=== PATIENT | female | born 1950 | race Caucasian/White ===

== ENCOUNTER 2021-12-15 19:44 | Inpatient (IN) | payer OTHER ==
[~2021-12-15] VITALS: Ht 170.2 cm; Wt 90.7 kg
[2021-12-15] MEDS ORDERED: ACETAMINOPHEN ES 500 MG TABLET ONE (20:17)
[2021-12-15] MEDS ORDERED: ONDANSETRON HCL/PF 4 MG/2 ML VIAL ONE (20:17)
[2021-12-15] MEDS ORDERED: ONDANSETRON HCL/PF 4 MG/2 ML VIAL IVP ONE (20:30)
[2021-12-15] MEDS ORDERED: IV NS 0.9% 1,000 ML BAG IV ONE (20:30)
[2021-12-15] MEDS ORDERED: ACETAMINOPHEN ES 500 MG TABLET PO ONE (20:30)
--- NOTE | 2021-12-15 20:32 | NUR ---
PT TRANSPORTED TO CT VIA [facility]
--- NOTE | 2021-12-15 20:51 | NUR ---
COVID SWAB DONE AND SENT TO LAB
--- NOTE | 2021-12-15 20:51 | NUR ---
RAPID INFLUENZA SWAB DONE AND SENT TO LAB
[2021-12-15 20:58] LABS: BASOPHILS % (AUTO) 0.4 % (0.0-2.0); EOSINOPHILS % (AUTO) 0.2 % (0.0-6.0); HEMATOCRIT 40 % (33-45); HEMOGLOBIN 13.2 g/dL (11.5-14.8); LYMPHOCYTES # (AUTO) 0.3 K/uL (0.8-4.8); MEAN CORPUSCULAR HGB CONC 33 g/dl (31.0-36.0); MEAN CORPUSCULAR VOLUME 91 fL (82-100); MONOCYTES # (AUTO) 0.1 K/uL (0.1-1.30); MONOCYTES % (AUTO) 1.8 % (2.0-12.0); NEUTROPHILS # (AUTO) 6.3 K/uL (1.8-8.9); NEUTROPHILS % (AUTO) 92.6 % (43.0-81.0); PLATELET COUNT (AUTO) 161 K/uL (150-450); RED BLOOD CELL COUNT(AUTO) 4.44 MIL/uL (4.0-5.2); WHITE BLOOD COUNT (AUTO) 6.9 K/uL (4.3-11.0)
--- NOTE | 2021-12-15 22:32 | NUR ---
LACTIC ACID 2.13
[2021-12-15 22:58] LABS: CALCIUM, SERUM 8.5 mg/dL (8.5-10.1); CARBON DIOXIDE 21 mmol/L (21-32); CHLORIDE 93 mmol/L (98-107); CREATININE 1.2 mg/dL (0.6-1.3); POTASSIUM 3.6 mmol/L (3.5-5.1); SODIUM SERUM 127 mmol/L (136-145); UREA NITROGEN, BLOOD 24 mg/dL (7-18)
[2021-12-15 23:02] LABS: GLUCOSE 458 mg/dL (74-106)
[2021-12-15] MEDS ORDERED: SULF1TAB48 PO (23:03)
[2021-12-15] MEDS ORDERED: LOPE-195 PO (23:03)
[2021-12-15] MEDS ORDERED: ONDA4TAB11 PO (23:03)
[2021-12-15 23:05] LABS: ALANINE AMINOTRANSFERASE 31 U/L (12-78); ALKALINE PHOSPHATASE 137 U/L (46-116); ASPARTATE AMINOTRANSFERASE 23 U/L (15-37); BILIRUBIN,DIRECT 0.2 mg/dL (0.0-0.2); BILIRUBIN,TOTAL 0.6 mg/dL (0.2-1.0); TOTAL PROTEIN, SERUM 8.5 g/dL (6.4-8.2)
[2021-12-15] MEDS ORDERED: INSULIN REGULAR, HUMAN 100 UNIT/ML 10 ML VIAL ONE (23:14)
[2021-12-15] MEDS ORDERED: ASPIRIN 325 MG TABLET ONE (23:14)
[2021-12-15 23:21] LABS: BILIRUBIN,URINE NEGATIVE (NEGATIVE); COLOR,URINE YELLOW (YELLOW); LEUKOCYTE ESTERASE ,URINE NEGATIVE (NEGATIVE); NITRITE, URINE NEGATIVE (NEGATIVE); PH,URINE 5.5 (5.0-8.0); PROTEIN,URINE 30 mg/dl (NEGATIVE); UGLUCOSE >=1000 mg/dL (NEGATIVE); UROBILINOGEN,URINE 0.2 EU/dL (0.2)
--- NOTE | 2021-12-15 23:29 | NUR ---
PROCALCITONIN 57.74
[2021-12-15] MEDS ORDERED: ASPIRIN 325 MG TABLET PO ONE (23:30)
[2021-12-15] MEDS ORDERED: INSULIN REGULAR, HUMAN 100 UNIT/ML 10 ML VIAL SQ ONE (23:30)
[2021-12-15 23:34] LABS: BACTERIA,URINE Many /HPF (None Seen); SQUAMOUS EPITHELIAL CELL,UR Few /HPF (None Seen); WBC,URINE 21-50 /HPF (0-3)
--- NOTE | 2021-12-16 03:03 | NUR ---
JOSIAH GARNICA, ADMIT HERE UNDER DR NOEL.
[2021-12-16] MEDS ORDERED: HYDROCODONE/APAP 5/325MG TABLET PO PRN (03:30)
[2021-12-16] MEDS ORDERED: ONDANSETRON HCL/PF 4 MG/2 ML VIAL IV PRN ×2 (03:30→07:30)
[2021-12-16] MEDS ORDERED: INSULIN GLARGINE, 100 UNIT/ML CARTRIDGE SQ ONE (03:30)
[2021-12-16] MEDS: BLOOD SUGAR DIAGNOSTIC 1 EACH STRIP IN SCH ×2 (03:30→07:36)
--- NOTE | 2021-12-16 04:20 | NUR ---
CALLED DR NOEL REGARDING CHANGE IN PATIENT MENTAL STATUS. ORDERS RECIEVED.
--- NOTE | 2021-12-16 04:27 | NUR ---
PT TRANSPORTED TO CT VIA [facility]
[2021-12-16] MEDS ORDERED: IV NS 0.9% 500 ML BAG IV ONE (04:30)
--- NOTE | 2021-12-16 04:39 | NUR ---
PT RETURNED TO ER BED7 FROM CT
--- NOTE | 2021-12-16 05:19 | NUR ---
LAB AT BEDSIDE FOR BLOOD DRAW
--- NOTE | 2021-12-16 05:50 | NUR ---
LACTIC ACID 2.8
[2021-12-16 05:53] LABS: CARBON DIOXIDE 20 mmol/L (21-32); CHLORIDE 100 mmol/L (98-107); CREATININE 1.3 mg/dL (0.6-1.3); GLUCOSE 339 mg/dL (74-106); POTASSIUM 3.2 mmol/L (3.5-5.1); SODIUM SERUM 134 mmol/L (136-145); UREA NITROGEN, BLOOD 23 mg/dL (7-18)
[2021-12-16 05:59] LABS: CHOLESTEROL 138 mg/dL (<200); HDL CHOLESTEROL 35 mg/dL (40-60); LDL 65 mg/dL (0-99); TRIGLYCERIDES 139 mg/dL (30-150)
[2021-12-16 06:11] LABS: BASOPHILS % (AUTO) 0.2 % (0.0-2.0); EOSINOPHILS % (AUTO) 0.3 % (0.0-6.0); HEMATOCRIT 39 % (33-45); HEMOGLOBIN 12.7 g/dL (11.5-14.8); LYMPHOCYTES # (AUTO) 0.3 K/uL (0.8-4.8); LYMPHOCYTES % (AUTO) 6.4 % (20.0-44.0); MEAN CORPUSCULAR HGB CONC 33 g/dl (31.0-36.0); MEAN CORPUSCULAR VOLUME 91 fL (82-100); MONOCYTES # (AUTO) 0.1 K/uL (0.1-1.30); MONOCYTES % (AUTO) 1.5 % (2.0-12.0); NEUTROPHILS # (AUTO) 3.9 K/uL (1.8-8.9); NEUTROPHILS % (AUTO) 91.6 % (43.0-81.0); PLATELET COUNT (AUTO) 125 K/uL (150-450); RED BLOOD CELL COUNT(AUTO) 4.25 MIL/uL (4.0-5.2); WHITE BLOOD COUNT (AUTO) 4.3 K/uL (4.3-11.0)
--- NOTE | 2021-12-16 07:35 | NUR ---
PT IN BED RESTING, AROUSABLE, UNDERSTANDS SOME DANISH. SIP OF WATER PROVIDED. NOT IN ACUTE DISTRESS.
--- NOTE | 2021-12-16 07:41 | NUR ---
ROOM 307-1
--- NOTE | 2021-12-16 07:49 | NUR ---
REPORT GIVEN TO NARISSA FOR KARO
[2021-12-16 08:00] VITALS: BP 117/55
--- NOTE | 2021-12-16 08:28 | NUR ---
LIFE SKILLS SPECIALIST NOTES RECEIVED PT FROM E.R. STAFF VIA MISSY, PT IS AROUSABLE, VERBALLY RESPONSIVE, NO COMPLAINT OF PAIN, NOT IN DISTRESS, STATES THAT SHE IS TIRED, ROOM SET ORIENTATION PROVIDED, VERBALIZED UNDERSTANDING, CALL LIGHT WITHIN REACH, KEPT COMFORTABLE.
--- NOTE | 2021-12-16 08:29 | NUR ---
PT TRANSFERRED TO ROOM 307 VIA ACLS PROTOCOL. WARM HANDOFF GIVEN TO NAGA CARY.
[2021-12-16 08:30] VITALS: BP 117/55
[2021-12-16] MEDS ORDERED: POTASSIUM CHLORIDE 20 MEQ TAB.PRT.SR PO ONE (08:30)
[2021-12-16] MEDS ORDERED: INSULIN GLARGINE, 100 UNIT/ML CARTRIDGE SQ SCH (09:00)
[2021-12-16 09:07] LABS: BAND % (MANUAL) 20 % (0.0-5.0); LYMPHOCYTES % (MANUAL) 8 % (16-48); METAMYELOCYTES % 3 % (0-0); MONOCYTES % (MANUAL) 5 % (0-11.0); MYELOCYTES % 2 % (0-0); NEUTROPHILS % (MANUAL) 62 (42-76)
[2021-12-16] MEDS: IV NS 0.9% 1,000 ML IV PRN (09:33)
[2021-12-16] MEDS: LEVOFLOXACIN 500 MG /D5W 100ML 500 MG in PREMIX 1 EA IV SCH (09:33)
[2021-12-16] MEDS ORDERED: PIOG45TA5 PO (09:43)
[2021-12-16] MEDS ORDERED: AMLO-213 PO (09:43)
[2021-12-16] MEDS ORDERED: GABA-532 PO (09:43)
[2021-12-16] MEDS ORDERED: ATOR40TA PO (09:43)
[2021-12-16] MEDS ORDERED: CAND32TA9 PO (09:43)
[2021-12-16] MEDS: ACETAMINOPHEN 325 MG TABLET PO PRN ×2 (09:48→19:17)
[2021-12-16] MEDS ORDERED: ATORVASTATIN 40 MG TABLET PO SCH (10:30)
[2021-12-16] MEDS: CARVEDILOL 6.25 MG TABLET PO SCH ×2 (10:30→21:15)
[2021-12-16 11:08] LABS: THYROID STIMULATING HORMONE 0.572 uIU/mL (0.358-3.74)
[2021-12-16 12:00] VITALS: BP 106/55
[2021-12-16] MEDS ORDERED: DEXTROSE 50%-WATER 50 ML DISP.SYRIN IV PRN (12:00)
[2021-12-16] MEDS: ASPIRIN 81 MG TAB.CHEW PO SCH (12:10)
[2021-12-16] MEDS: ATORVASTATIN 10 MG TABLET PO SCH (12:11)
[2021-12-16] MEDS: INSULIN REGULAR, HUMAN 100 UNIT/ML 3 ML VIAL SQ PRN ×2 (12:12→17:22)
[2021-12-16] MEDS: ENOXAPARIN SODIUM 100 MG/ML DISP.SYRIN SQ SCH ×2 (12:12→21:18)
[2021-12-16] MEDS: BLOOD SUGAR DIAGNOSTIC 1 EACH STRIP VI SCH ×3 (12:13→21:24)
[2021-12-16] MEDS: INSULIN GLARGINE, 100 UNIT/ML CARTRIDGE SQ SCH ×2 (12:13→21:24)
[2021-12-16] MEDS: METRONIDAZOLE 500MG/ NS 100ML 500 MG in PREMIX 1 EA IV SCH ×2 (12:46→21:09)
[2021-12-16 16:00] VITALS: BP 99/54
--- NOTE | 2021-12-16 18:17 | NUR ---
TONGUE PRESSER NOTES PT IN BED, ASLEEP, EASY TO AROUSE AND ABLE TO MAKE NEEDS KNOWN, CALL LIGHT WITHIN REACH, IV FLUIDS INFUSING WELL, ASSISTED TO BATHROOM NEEDED, TOLERATES CURRENT DIET, BS CHECKED, INSULIN GIVEN PER SLIDING SCALE ORDERED, ALL NEEDS ATTENDED.
--- NOTE | 2021-12-16 19:30 | NUR ---
CUFF KNITTER OPENING NOTE RECEIVED PATIENT IN BED, DELIRIOUS AT THIS TIME WITH 103 FEVER-- AM SHIFT JUST GAVE TYLENOL. O2 TITRATED TO 6LPM. NO C/O PAIN. IV NS RUNNING @100 MLS/HR. TELE MONITOR READING ST WITH 112. RE-ORIENTED AND ENCOURAGED WITH THE USE OF CALL LIGHT. SAFETY IN PLACE. WILL CONTINUE WITH PLAN OF CARE FOR PATIENT.
[2021-12-16 20:00] VITALS: BP 152/85
[2021-12-16] MEDS: *INSULIN REGULAR(HUMULIN R)HUM 100 UNIT/ML VIAL SQ PRN (21:26)
--- NOTE | 2021-12-16 22:00 | NUR ---
CALL CENTER RECRUITER NOTE TEMPERATURE WENT DOWN TO 98.7, HR SR WITH 70BPM. PATIENT STABLE IN 6LP OF O2 VIA NC SATURATING 98%. STABLE FOR NOW. WILL CONTINUE TO MONITOR.
[2021-12-17] VITALS: BP 95/57
[2021-12-17] MEDS: IV NS 0.9% 1,000 ML IV PRN (02:49)
--- NOTE | 2021-12-17 03:48 | NUR ---
FARM EQUIPMENT ASSEMBLER NOTE PATIENT STABLE IN 2LPM OF O2 VIA NC RIGHT NOW. SATURATING 98%. NO FEVER.
[2021-12-17 04:00] VITALS: BP 130/60
[2021-12-17] MEDS: METRONIDAZOLE 500MG/ NS 100ML 500 MG in PREMIX 1 EA IV SCH ×2 (05:06→13:57)
[2021-12-17 05:16] LABS: BASOPHILS % (AUTO) 0.2 % (0.0-2.0); EOSINOPHILS % (AUTO) 0.3 % (0.0-6.0); HEMATOCRIT 33 % (33-45); LYMPHOCYTES % (AUTO) 8.8 % (20.0-44.0); MEAN CORPUSCULAR HGB CONC 33 g/dl (31.0-36.0); MEAN CORPUSCULAR VOLUME 91 fL (82-100); MONOCYTES # (AUTO) 0.5 K/uL (0.1-1.30); MONOCYTES % (AUTO) 4.6 % (2.0-12.0); NEUTROPHILS % (AUTO) 86.1 % (43.0-81.0); PLATELET COUNT (AUTO) 107 K/uL (150-450); RED BLOOD CELL COUNT(AUTO) 3.69 MIL/uL (4.0-5.2); WHITE BLOOD COUNT (AUTO) 11.6 K/uL (4.3-11.0)
[2021-12-17 05:20] LABS: CALCIUM, SERUM 7.7 mg/dL (8.5-10.1); CARBON DIOXIDE 22 mmol/L (21-32); CHLORIDE 102 mmol/L (98-107); CREATININE 1.1 mg/dL (0.6-1.3); GLUCOSE 219 mg/dL (74-106); POTASSIUM 4.3 mmol/L (3.5-5.1); SODIUM SERUM 133 mmol/L (136-145); UREA NITROGEN, BLOOD 28 mg/dL (7-18)
[2021-12-17 05:24] LABS: ALANINE AMINOTRANSFERASE 27 U/L (12-78); ALKALINE PHOSPHATASE 141 U/L (46-116); ASPARTATE AMINOTRANSFERASE 33 U/L (15-37); BILIRUBIN,TOTAL 0.3 mg/dL (0.2-1.0); MAGNESIUM 2.7 mg/dL (1.8-2.4); PHOSPHORUS 2.4 mg/dL (2.5-4.9); TOTAL PROTEIN, SERUM 6.3 g/dL (6.4-8.2)
[2021-12-17] MEDS: BLOOD SUGAR DIAGNOSTIC 1 EACH STRIP VI SCH ×4 (06:33→21:45)
[2021-12-17] MEDS: INSULIN REGULAR, HUMAN 100 UNIT/ML 3 ML VIAL SQ PRN ×3 (06:34→17:30)
--- NOTE | 2021-12-17 07:30 | NUR ---
CONSULTING GROUP ANALYST NOTES PT IN BED, ASLEEP, EASY TO AROUSE, ALERT AND ABLE TO MAKE NEEDS KNOWN, NOT IN DISTRESS, ON O2 AT 2LPM VIA N/C NO SOB AT THIS TIME, AFEBRILE, CALL LIGHT WITHIN REACH, BED ALARM ON.
--- NOTE | 2021-12-17 07:31 | NUR ---
CHIEF OPERATING ENGINEER CLOSING NOTE NEEDS ATTENDED. REPORT GIVEN TO NAGA LEWIS FOR CONTINUITY OF CARE.
[2021-12-17 08:00] VITALS: BP 144/73
--- NOTE | 2021-12-17 08:02 | NUR ---
WOUND CARE CONSULT: PT HAVING BREAKFAST AT THIS TIME. REVIEWED CHART, NURSING DOCUMENTATION AND PHOTOS WHICH INDICATE RED RASH TO LEFT AXILLA AND GROIN FOLDS, PRESENT ON ADMISSION. RECOMMENDATIONS MADE FOR SKIN PROTECTION. DISCUSSED WITH NURSING STAFF. MD IN AGREEMENT WITH PLAN OF CARE.
[2021-12-17] MEDS ORDERED: Z GUARD REMEDY 4 OZ OINT TP PRN (08:30)
[2021-12-17] MEDS: LEVOFLOXACIN 500 MG /D5W 100ML 500 MG in PREMIX 1 EA IV SCH (09:07)
[2021-12-17] MEDS: ENOXAPARIN SODIUM 100 MG/ML DISP.SYRIN SQ SCH ×2 (09:08→21:00)
[2021-12-17] MEDS: ATORVASTATIN 10 MG TABLET PO SCH (09:08)
[2021-12-17] MEDS: ASPIRIN 81 MG TAB.CHEW PO SCH (09:08)
[2021-12-17] MEDS: CARVEDILOL 12.5 MG TABLET PO SCH ×2 (09:09→20:47)
[2021-12-17] MEDS: CLOTRIMAZOLE 1% 15 GM TUBE TP SCH ×2 (09:10→17:28)
[2021-12-17] MEDS: INSULIN GLARGINE, 100 UNIT/ML CARTRIDGE SQ SCH ×2 (09:11→21:45)
[2021-12-17] MEDS ORDERED: FLUCONAZOLE (100 MG) 100 MG TABLET PO ONE (09:30)
[2021-12-17] MEDS ORDERED: IOHEXOL-350 100 ML VIAL IV ONE ×2 (09:37→10:19)
[2021-12-17] MEDS ORDERED: IV NS 0.9% 250 ML IV ONE (09:37)
[2021-12-17] MEDS ORDERED: CT SWABBABLE VALVE TRANS SET 1 EA INFUS.SET MC ONE (09:37)
[2021-12-17] MEDS ORDERED: NITROGLYCERIN 0.4 MG/TAB BOTTLE ONE (09:37)
[2021-12-17] MEDS: METOPROLOL TARTRATE INJ 5 MG/5 ML AMPUL IVP PRN ×6 (09:45→10:10)
[2021-12-17] MEDS ORDERED: METOPROLOL TARTRATE INJ 5 MG/5 ML AMPUL ONE ×2 (09:48→10:04)
[2021-12-17] MEDS ORDERED: IV NS 0.9% 500 ML IV PRN (10:00)
[2021-12-17] MEDS ORDERED: NITROGLYCERIN 0.4 MG/TAB BOTTLE SL ONE (10:00)
--- NOTE | 2021-12-17 11:00 | NUR ---
WOOL SHEARING SUPERVISOR NOTES PT BACK FROM [facility], TOLERATED PROCEDURE WELL, AT BEDSIDE, PT SEEN BY DR. NOEL TODAY, ORDERS GIVEN.
[2021-12-17 12:00] VITALS: BP_SYST 117; BP_SYST 135; BP_DIAS 52; BP_DIAS 58
--- NOTE | 2021-12-17 14:06 | NUR ---
AIR BOX TESTER NOTES SPOKE WITH PT'S DAUGHTER JESSICA, DR. NOEL SPOKE WITH HER AND UPDATED HER ON PT'S CURRENT STATUS WELL THE RESULTS OF TODAY'S PROCEDURES, DAUGHTER IS AWARE OF THE PLAN FOR LEFT HEART CATH AND CT GUIDED BIOPSY OF LEFT LUNG MASS, VERBALIZED UNDERSTANDING, SAID SHE WILL CALL HER MOM AND EXPLAIN TO HER.
[2021-12-17] MEDS ORDERED: K PHOS NEUTRAL 250 MG TABLET PO ONE (16:00)
[2021-12-17 16:16] VITALS: BP 135/58
--- NOTE | 2021-12-17 18:05 | NUR ---
BILLING ADMINISTRATOR NOTE PT IN BED, ALERT AN ORIENTED. HAS BEEN USING BEDSIDE COMMODE WITH ASSISTANCE. AT BEDSIDE, BROUGHT MEDICATIONS FROM HOME, PREPARED TO DELIVER TO HOSPITAL PHARMACY. PT ABLE TO EXPRESS CONCERNS AND NEEDS, CALL LIGHT WITHIN REACH, BED AT LOWEST POSITION, O2 AND IV RUNNING ORDERED.ALL MEDICATIONS HAVE BEEN ADMINISTERED ORDERED. HEART CONSENT AND CT BIOPSY ORDER HAVE BEEN SIGNED, IN PT'S CHART.
[2021-12-17 20:09] VITALS: BP 151/97
[2021-12-17] MEDS: ACETAMINOPHEN 325 MG TABLET PO PRN (20:54)
[2021-12-17] MEDS: *INSULIN REGULAR(HUMULIN R)HUM 100 UNIT/ML VIAL SQ PRN (21:43)
--- NOTE | 2021-12-17 22:47 | NUR ---
FEVER 2057 Patient spiked Temp 102.9F Cooling measure given, patient on IV Flagyl and Levaquin. Prelim 12/15/21 Bld. cx Gram neg rods. Urine cx Gram neg rods. Notified Dr. Alvarado with new orders placed. Tylenol for fever, stop Flagyl and Levaquin. Start on IV Zosyn 3.375gm IV q6H. Hold Lovenox injection dose tonight, for CT Guided Left lung biopsy tomorrow.
--- NOTE | 2021-12-17 22:55 | NUR ---
ACCU CHECK ACHS 2143 Bld Glucose 156mg/dl. Given 2units insulin Regular per SS parameters co-signed by NAGA Musa.
[2021-12-17] MEDS ORDERED: PIPERACILLIN /TAZOBACTAM 3.375 G VIAL IV ONE (23:24)
[2021-12-17] MEDS: PIPERACILLIN /TAZOBACTAM 3.375 G in IV D5W 50 ML IV SCH (23:53)
[2021-12-18] VITALS (10 sets, daily range): BP systolic 129–149; BP diastolic 66–77
--- NOTE | 2021-12-18 00:30 | NUR ---
FEVER RESOLVED Temp curved down 98.F Patient denies pain, no c/o chest pain.
[2021-12-18] MEDS: IV NS 0.9% 1,000 ML IV PRN ×2 (03:07→17:02)
[2021-12-18] MEDS ORDERED: PIPERACILLIN /TAZOBACTAM 3.375 G VIAL IV ONE (05:16)
[2021-12-18] MEDS: PIPERACILLIN /TAZOBACTAM 3.375 G in IV D5W 50 ML IV SCH (05:32)
--- NOTE | 2021-12-18 05:56 | NUR ---
END OF SHIFT REPORT Patient is A/O x3. On supplemental Oxygen 2L NC, observed SOB with exertion. Denies chest pain, Sinus rhythm in the Tele monitor, HR 74. IVF infusing, on IV abx. Fever resolved after Tylenol and cooling measure. NPO since MN. Plan for CT Needle Biopsy and Left Heart cath. Will endorse to oncoming RN.
[2021-12-18] MEDS: BLOOD SUGAR DIAGNOSTIC 1 EACH STRIP VI SCH ×4 (06:19→21:07)
[2021-12-18] MEDS: INSULIN REGULAR, HUMAN 100 UNIT/ML 3 ML VIAL SQ PRN ×3 (06:22→21:08)
--- NOTE | 2021-12-18 06:22 | NUR ---
ACCU CHECK ACHS Bld Glucose 137mg/dl. Given 2units insulin Regular per SS parameters co-signed by NAGA Mark .
[2021-12-18 06:47] LABS: HEMATOCRIT 36 % (33-45); HEMOGLOBIN 11.9 g/dL (11.5-14.8); MEAN CORPUSCULAR HGB CONC 33 g/dl (31.0-36.0); MEAN CORPUSCULAR VOLUME 92 fL (82-100); PLATELET COUNT (AUTO) 98 K/uL (150-450); RED BLOOD CELL COUNT(AUTO) 3.97 MIL/uL (4.0-5.2); WHITE BLOOD COUNT (AUTO) 10.9 K/uL (4.3-11.0)
--- NOTE | 2021-12-18 07:30 | NUR ---
PAPER BAG MACHINE OPERATOR OPENING NOTES: RECEIVED PATIENT IN BED ASLEEP, EASY TO AROUSED WITH STIMULI, A/O X3 AND ABLE TO VERBALIZED NEEDS. NO SOB CARDIAC DISTRESS NOTED, ON O2 INHALATION @ 2LPM VIA NC. BINDING DYER W/ CURRENT READING OF SINUS RHYTHM 71BPM. IV ACCESS ON RAC G 18 NS AT 75ML/HR PATENT AND INTACT AND INFUSING WELL. SAFETY PRECAUTIONS MAINTAINED: BED IN LOWEST AND LOCKED POSITION, SIDE RAILS UP . CALL LIGHT IN EASY REACH FOR HELP/ASSISTANCE. WILL MONITOR THE PATIENT ACCORDINGLY.
[2021-12-18 07:43] LABS: CREATININE 0.8 mg/dL (0.6-1.3); POTASSIUM 3.9 mmol/L (3.5-5.1)
[2021-12-18] MEDS ORDERED: CEFTRIAXONE 2 G in IV D5W 100 ML IV SCH (08:00)
--- NOTE | 2021-12-18 08:00 | NUR ---
RN NOTES: LEFT HEART CATHETER RESCHEDULED PER MD DUE TO EPISODES OF FEVER YESTERDAY.
[2021-12-18] MEDS: ASPIRIN 81 MG TAB.CHEW PO SCH (09:00)
[2021-12-18] MEDS: INSULIN GLARGINE, 100 UNIT/ML CARTRIDGE SQ SCH ×2 (09:00→21:06)
[2021-12-18] MEDS: CARVEDILOL 12.5 MG TABLET PO SCH ×2 (09:00→20:50)
[2021-12-18] MEDS: ATORVASTATIN 10 MG TABLET PO SCH (09:00)
[2021-12-18] MEDS: ENOXAPARIN SODIUM 100 MG/ML DISP.SYRIN SQ SCH ×2 (09:00→20:51)
--- NOTE | 2021-12-18 09:00 | NUR ---
RN NOTES: DID NOT GIVE GLARGINE 22 UNITS BS IS 192MG/DL, PATIENT ON NPO.
[2021-12-18] MEDS: CLOTRIMAZOLE 1% 15 GM TUBE TP SCH ×2 (09:37→17:28)
--- NOTE | 2021-12-18 11:53 | NUR ---
RN NOTES: I CALLED RADIOLOGY DEPT, PER TED DELGADO MD WILL RESCHEDULED IT OUT PATIENT. PATIENT CAN RESUME HER DIET.
[2021-12-18] MEDS ORDERED: PIPERACILLIN /TAZOBACTAM 3.375 G in IV D5W 50 ML IV SCH (12:00)
--- NOTE | 2021-12-18 13:45 | NUR ---
RN NOTES: PER DR NOEL RESUME [facility] DIET. ORDERS NOTED AND CARRIED OUT.
--- NOTE | 2021-12-18 14:34 | NUR ---
RN NOTES: OFFERED SNACKS AND CRANBERRY JUICE PATIENT ABLE TO TOLERATE FOOD INTAKE, NO NAUSEA OR VOMITING NOTED.
[2021-12-18 16:28] LABS: BAND % (MANUAL) 2 % (0.0-5.0); EOSINOPHILS % (MANUAL) 2 % (0-4); LYMPHOCYTES % (MANUAL) 12 % (16-48); MONOCYTES % (MANUAL) 4 % (0-11.0)
[2021-12-18 16:29] LABS: NEUTROPHILS % (MANUAL) 80 (42-76)
[2021-12-18] MEDS ORDERED: MEROPENEM 1 G in IV NS 0.9% 100 ML IV ONE (17:00)
--- NOTE | 2021-12-18 18:12 | NUR ---
RN NOTES: INFORMED DR NOEL THAT FAMILY'S REQUESTING TO MAKE UPDATE ON HER MOTHER'S CONDITION: JESSICA [phone].
--- NOTE | 2021-12-18 18:33 | NUR ---
BUSINESS PERFORMANCE SPECIALIST CLOSING NOTES: PATIENT IN BED AWAKE, A/O X3 AND ABLE TO VERBALIZED NEEDS. NO SOB CARDIAC DISTRESS NOTED, ON O2 INHALATION @ 2LPM VIA NC. RADIO REPAIRMAN W/ CURRENT READING OF SINUS RHYTHM 75BPM. IV ACCESS ON RAC G 18 NS AT 75ML/HR PATENT AND INTACT AND INFUSING WELL. NO NAUSEA OR VOMITING NOTED. HAD 3X OF BM- SOFT TO LOOSE YELLOWISH BROWNISH COLOORED. PATIENT STILL WARM TO TOUCH NO FEVER. SAFETY PRECAUTIONS MAINTAINED: BED IN LOWEST AND LOCKED POSITION, SIDE RAILS UP . CALL LIGHT IN EASY REACH FOR HELP/ASSISTANCE. WILL MONITOR THE PATIENT ACCORDINGLY. ENDORSED TO EXECUTIVE DIRECTOR NURSE FOR CONTINUITY OF CARE.
--- NOTE | 2021-12-18 19:30 | NUR ---
STAPLE SHEAR OPERATOR NOTES RECEIVED ON BED SLEEPING,AROUSABLE TO VERBAL STIMULI,BREATHING EASY,NO SOB,IVF NS AT 75ML/HR RATE INFUSING WELL ON RAC SALINE LOCK,SITE PATENT,NO S/S OF INFILTRATION NOTED.ISOLATION PRECAUTION FOR ESBL,ECOLI ON STOOL.CURRENTLY ON IV ABX.WILL CONTINUE TO MONITOR STATUS,CALL LIGHT IN REACH,NEEDS ANTICIPATED.
--- NOTE | 2021-12-18 20:03 | NUR ---
CAMPUS SAFETY OFFICER NOTES SR-73 ON TELE MONITOR
--- NOTE | 2021-12-18 21:07 | NUR ---
CHIPPER FEEDER NOTES ACCU-CHECK BLOOD SUGAR CHECK 170,COVERED WITH HUMULIN R 3 UNITS,ALONG WITH LANTUS 22 UNITS SCHEDULED,GIVEN SQ ON RIGHT DELTOID.IVF INFUSING WELL ON RIGHT AC SALINE LOCK VIA IV PUMP.
[2021-12-19] VITALS: BP 158/77
[2021-12-19] MEDS: MEROPENEM 1 G in IV NS 0.9% 100 ML IV SCH ×3 (00:34→16:21)
--- NOTE | 2021-12-19 02:25 | NUR ---
REPRODUCTION TECHNICIAN NOTES REPORTED BY LAB,SECOND BOTTLE OF BLOOD CULTURE SHOWS GRAM NEGATIVE RODS,ALREADY ON ANTIBIOTICS
[2021-12-19 04:00] VITALS: BP 137/83
--- NOTE | 2021-12-19 04:00 | NUR ---
RN TRAUMA NOTES MORNING CARE RENDERED TOLERATED WELL.
[2021-12-19 04:04] VITALS: BP 137/83
--- NOTE | 2021-12-19 05:30 | NUR ---
MANAGEMENT TECHNICIAN NOTES ACCU-CHECK BLOOD SUGAR CHECK 139,COVERED WITH HUMULIN R 2 UNITS PER SLIDING SCALE.,IVF INFUSING WELL ON RIGHT WRIST.
[2021-12-19] MEDS: BLOOD SUGAR DIAGNOSTIC 1 EACH STRIP VI SCH ×3 (05:59→16:53)
[2021-12-19] MEDS: INSULIN REGULAR, HUMAN 100 UNIT/ML 3 ML VIAL SQ PRN ×3 (06:19→16:56)
[2021-12-19 06:20] LABS: BASOPHILS % (AUTO) 0.1 % (0.0-2.0); EOSINOPHILS % (AUTO) 0.2 % (0.0-6.0); HEMATOCRIT 35 % (33-45); HEMOGLOBIN 11.8 g/dL (11.5-14.8); LYMPHOCYTES # (AUTO) 0.9 K/uL (0.8-4.8); LYMPHOCYTES % (AUTO) 9.4 % (20.0-44.0); MEAN CORPUSCULAR HGB CONC 33 g/dl (31.0-36.0); MEAN CORPUSCULAR VOLUME 90 fL (82-100); MONOCYTES # (AUTO) 0.7 K/uL (0.1-1.30); MONOCYTES % (AUTO) 7.9 % (2.0-12.0); NEUTROPHILS # (AUTO) 7.6 K/uL (1.8-8.9); NEUTROPHILS % (AUTO) 82.4 % (43.0-81.0); PLATELET COUNT (AUTO) 105 K/uL (150-450); RED BLOOD CELL COUNT(AUTO) 3.93 MIL/uL (4.0-5.2); WHITE BLOOD COUNT (AUTO) 9.2 K/uL (4.3-11.0)
--- NOTE | 2021-12-19 06:52 | NUR ---
MILLER HELPER DISTILLERY NOTES SLEEPING AROUSABLE TO VERBAL STIMULI,IVF INFUSING WELL ON RIGHT WRIST.IN NO ACUTE DISTRESS.
[2021-12-19 06:55] LABS: CREATININE 0.7 mg/dL (0.6-1.3); POTASSIUM 3.4 mmol/L (3.5-5.1)
--- NOTE | 2021-12-19 07:30 | NUR ---
RUG CUTTER OPENING NOTES: RECEIVED PATIENT IN BED ASLEEP, EASY TO AROUSED WITH STIMULI, A/O X3 AND ABLE TO VERBALIZED NEEDS. NO SOB CARDIAC DISTRESS NOTED, ON O2 INHALATION @ 2LPM VIA NC. MEDICAL PHYSICS TEACHER W/ CURRENT READING OF SINUS RHYTHM 61 BPM. IV ACCESS ON RAC G 18 NS AT 75ML/HR PATENT AND INTACT AND INFUSING WELL. SAFETY PRECAUTIONS MAINTAINED: BED IN LOWEST AND LOCKED POSITION, SIDE RAILS UP . CALL LIGHT IN EASY REACH FOR HELP/ASSISTANCE. WILL MONITOR THE PATIENT ACCORDINGLY.
[2021-12-19] MEDS ORDERED: MERO1VIA23 IV (07:55)
[2021-12-19] MEDS ORDERED: *INS REG SQ (07:55)
[2021-12-19] MEDS ORDERED: Insulin Glargine,Hum SQ (07:55)
[2021-12-19] MEDS ORDERED: CARV12.52 PO (07:55)
[2021-12-19] MEDS ORDERED: ASPI-1169 PO (07:55)
[2021-12-19] MEDS ORDERED: ENOXAPARIN SODIUM 40 MG/0.4 ML DISP.SYRIN SQ SCH (08:00)
[2021-12-19 08:16] VITALS: BP 148/73
[2021-12-19] MEDS: ATORVASTATIN 10 MG TABLET PO SCH (08:29)
[2021-12-19] MEDS: CARVEDILOL 12.5 MG TABLET PO SCH (08:30)
[2021-12-19] MEDS: ASPIRIN 81 MG TAB.CHEW PO SCH (08:30)
[2021-12-19] MEDS: CLOTRIMAZOLE 1% 15 GM TUBE TP SCH ×2 (08:35→16:24)
[2021-12-19] MEDS: INSULIN GLARGINE, 100 UNIT/ML CARTRIDGE SQ SCH (08:45)
[2021-12-19] MEDS ORDERED: VALSARTAN 80 MG TABLET PO SCH (09:00)
[2021-12-19] MEDS ORDERED: POTASSIUM CHLORIDE 20 MEQ TAB.PRT.SR PO SCH (10:00)
--- NOTE | 2021-12-19 11:47 | NUR ---
RN NOTES: MIDLINE INSERTED ON MOIZ G#18, PATIENT TOLERATED WELL
[2021-12-19 16:48] VITALS: BP 147/75
--- NOTE | 2021-12-19 18:47 | NUR ---
SUPERVISOR LINE DEPARTMENT NOTES: PATIENT IN BED, DC TO SNF, GAVE REPORT TO RN NATHALIA. PATIENT ALERT AND ORIENTED X 3 [place]ISH SPEAKING, PATIENT VERY PLEASANT. NO SOB OR CARDIAC DISTRESS NOTED, AFEBRILE ON O2 INHALATION @2LPM TOLERATING WELL. SKIN ISSUES TAKEN AND FILED IN HER CHART. ALL BELONGINGS TAKEN AND CARRIED BY THE . ENDORSED TO SNF RN AND PARAMEDICS THAT PT ON CONTACT ISOLATION DUE TO ESBL, K.PNEUMONIAE AND E.COLI. KEPT THE IV ACCESS RIGHT FOREARM AND MOIZ MIDLINE G#18 FOR IV CONTINUATION OF ANTIBIOTICS THERAPY. KEPT IDENTIFICATION BAND IN PLACE. PATIENT KEPT CLEANED AND RESTED. PATIENT LEFT THE UNIT, ACCOMPANIED BY 2 PARAMEDICS VIA REGULAR GURNEY, LEFT THE UNIT
== END 2021-12-19 18:49 | DRG 871 ==
LOC: ER 19:46 → TRANSITION 12-16 04:59 → TELE 12-16 07:50
PROVIDERS: ADMIT Internal Medicine; ATTEND Internal Medicine
PROC: 05HF33Z Insertion of Infusion Device into Left Cephalic Vein, Percutaneous Approach (ICD-10-PCS; principal; 2021-12-19)
DX: A41.51 Sepsis due to Escherichia coli [E. coli] (principal); G92.8 Other toxic encephalopathy; I21.4 Non-ST elevation (NSTEMI) myocardial infarction; E87.1 Hypo-osmolality and hyponatremia; N39.0 Urinary tract infection, site not specified; E87.2 Acidosis; Z16.12 Extended spectrum beta lactamase (ESBL) resistance; K52.9 Noninfective gastroenteritis and colitis, unspecified; D69.6 Thrombocytopenia, unspecified; E86.0 Dehydration; Z20.822 Contact with and (suspected) exposure to COVID-19; E11.65 Type 2 diabetes mellitus with hyperglycemia; I10 Essential (primary) hypertension; E87.6 Hypokalemia; R79.89 Other specified abnormal findings of blood chemistry; R09.02 Hypoxemia; E66.9 Obesity, unspecified; Z68.31 Body mass index [BMI] 31.0-31.9, adult; R91.8 Other nonspecific abnormal finding of lung field; B96.20 Unspecified Escherichia coli [E. coli] as the cause of diseases classified elsewhere; I25.10 Atherosclerotic heart disease of native coronary artery without angina pectoris; K80.20 Calculus of gallbladder without cholecystitis without obstruction
CPT/HCPCS: 36415; 70450-TC; 71045-TC; 75574; 80048-TC; 80053-TC; 80061-TC; 80076-TC; 81001; 82962-TC; 83605-TC; 83735-TC; 84100-TC; 84439-TC; 84443-TC; 84484-TC; 85025-TC; 85610-TC; 85730-TC; 87040-TC; 87081-TC; 87086-TC; 87186-TC; 93307-TC; 94799-TC; A4216; C9803; G0378; J0696; J1650; J1815; J1956; J2185; J2405; J2543; J3490; J7030; J7040; J7050; J7060; Q9967

== ENCOUNTER 2024-04-19 01:38 | Emergency (ER) | payer OTHER, MEDICAID ==
[~2024-04-19] VITALS: Ht 167.6 cm; Wt 68.0 kg
[~2024-04-19 01:38] MED LIST: *INS REG SQ; ASPI-1169 PO; ATOR40TA PO; CARV12.52 PO; Insulin Glargine,Hum SQ; MERO1VIA23 IV
[2024-04-19 02:37] LABS: BASOPHILS % (AUTO) 0.3 % (0.0-2.0); EOSINOPHILS # (AUTO) 0.2 K/uL (0.0-0.7); EOSINOPHILS % (AUTO) 2.2 % (0.0-6.0); HEMATOCRIT 43 % (33-45); HEMOGLOBIN 14.2 g/dL (11.5-14.8); LYMPHOCYTES # (AUTO) 3.2 K/uL (0.8-4.8); LYMPHOCYTES % (AUTO) 35.6 % (20.0-44.0); MEAN CORPUSCULAR HEMOGLOBIN 30 PG (26.0-33.0); MEAN CORPUSCULAR HGB CONC 33 g/dl (31.0-36.0); MEAN CORPUSCULAR VOLUME 91 fL (82-100); MONOCYTES # (AUTO) 0.5 K/uL (0.1-1.30); MONOCYTES % (AUTO) 5.9 % (2.0-12.0); NEUTROPHILS # (AUTO) 5.1 K/uL (1.8-8.9); PLATELET COUNT (AUTO) 258 K/uL (150-450); RED BLOOD CELL COUNT(AUTO) 4.78 MIL/uL (4.0-5.2); RED CELL DISTRIBUTION WIDTH 13.8 % (11.5-15.0)
[2024-04-19] MEDS ORDERED: MECLIZINE HCL 25 MG TABLET ONE (02:44)
[2024-04-19] MEDS ORDERED: METOCLOPRAMIDE HCL 10 MG/2 ML VIAL ONE (02:44)
[2024-04-19] MEDS ORDERED: diphenhydrAMINE HCL 50 MG/ML VIAL ONE (02:44)
[2024-04-19 02:51] LABS: MAGNESIUM 2.4 mg/dL (1.8-2.4)
[2024-04-19 02:56] LABS: INR 0.95 (0.91-1.10); PARTIAL THROMBOPLASTIN TIME 26.4 SEC (24.3-34.3); PROTHROMBIN TIME 10.1 SECS (9.2-11.1)
[2024-04-19 02:58] LABS: ALANINE AMINOTRANSFERASE 34 U/L (12-78); ALBUMIN 3.1 g/dL (3.4-5.0); ALKALINE PHOSPHATASE 69 U/L (46-116); ASPARTATE AMINOTRANSFERASE 24 U/L (15-37); BILIRUBIN,DIRECT 0.1 mg/dL (0.0-0.2); BILIRUBIN,TOTAL 0.3 mg/dL (0.2-1.0); CALCIUM, SERUM 8.8 mg/dL (8.5-10.1); CARBON DIOXIDE 28 mmol/L (21-32); CHLORIDE 105 mmol/L (98-107); CREATININE 0.9 mg/dL (0.6-1.3); GLUCOSE 57 mg/dL (74-106); LIPASE 61 U/L (16-77); POTASSIUM 3.9 mmol/L (3.5-5.1); SODIUM SERUM 142 mmol/L (136-145); TOTAL PROTEIN, SERUM 7.3 g/dL (6.4-8.2); UREA NITROGEN, BLOOD 27 mg/dL (7-18)
[2024-04-19] MEDS: diphenhydrAMINE HCL 50 MG/ML VIAL IV ONE (03:00)
[2024-04-19] MEDS: METOCLOPRAMIDE HCL 10 MG/2 ML VIAL IV ONE (03:00)
[2024-04-19] MEDS: MECLIZINE HCL 12.5 MG TABLET PO ONE (03:01)
[2024-04-19 03:05] LABS: THYROID STIMULATING HORMONE 2.94 uIU/mL (0.358-3.74)
[2024-04-19] MEDS ORDERED: MECL-159 PO ×2 (03:28→07:41)
[2024-04-19 07:30] VITALS: BP 145/78; TEMP 97.8; O2SAT 98
== END 2024-04-19 07:44 | disposition home or self-care (01) ==
LOC: ER 01:55
DX: R42 Dizziness and giddiness (principal); I10 Essential (primary) hypertension; E11.9 Type 2 diabetes mellitus without complications; Z79.82 Long term (current) use of aspirin
CPT/HCPCS: 99285; 96374; 70450; 96375; 93005; 85025; 80048; 82550; 83690; 80076; 83735; 36415; 84439; 84443; 84484; 85730; 82962; J8597; J1200; J2765